=== PATIENT | female | born 1930 | race African-American/Black ===

== ENCOUNTER 2018-07-05 18:27 | Inpatient (IN) | payer MEDICARE, MEDICAID, OTHER ==
[~2018-07-05] VITALS: Ht 157.5 cm; Wt 69.9 kg
[~2018-07-05 18:27] MED LIST: LEVO50TA67 PO; LINA5TAB4 PO; NOR5T PO; OLME1TAB22 PO; OXYC40TA39 PO; PRAV10TA38 PO; SOTA80TA73 PO
[2018-07-05 19:18] LABS: CLARITY,URINE CLEAR (Clear); COLOR,URINE YELLOW (Yellow); GLUCOSE, URINE NEGATIVE (Neg); KETONES,URINE NEGATIVE (Neg); LEUKOCYTE ESTERASE ,URINE NEGATIVE (Neg); NITRITES, URINE NEGATIVE (Neg); OCCULT BLOOD,URINE NEGATIVE (Neg); PH,URINE 5.5 (4.8-8.0); PROTEIN,URINE 30 mg/dl (Neg); UROBILINOGEN,URINE 0.2 E.U/dL (0.2-1.0)
[2018-07-05 19:27] LABS: UA COLLECTION TYPE CLN CATCH MIDSTREAM
[2018-07-05 19:36] LABS: BACTERIA,URINE NONE SEEN /HPF (Neg); RBC,URINE NONE SEEN /HPF (0-2); SQUAMOUS EPITHELIAL CELL,UR FEW /LPF (FEW); WBC,URINE 0-4 /HPF (0-4)
[2018-07-05 19:37] LABS: HYALINE CASTS 0-3 /LPF (NEGATIVE); MUCUS STRANDS FEW /LPF (Neg)
[2018-07-05] MEDS ORDERED: cloNIDine 0.1 mg tablet PO ONE (20:45)
[2018-07-05 21:30] LABS: BASOPHILS % (AUTO) 0.6 % (0-1); EOSINOPHILS # (AUTO) 0.2 X10'3 (0-0.9); EOSINOPHILS % (AUTO) 2.8 % (0-6); HEMATOCRIT 34.7 % (35.0-45.0); HEMOGLOBIN 11.6 g/dl (12.0-16.0); LYMPHOCYTES # (AUTO) 1.5 X10'3 (1.1-4.8); LYMPHOCYTES % (AUTO) 24.9 % (21-51); MEAN CORPUSCULAR HEMOGLOBIN 28.7 PG (27.0-31.0); MEAN CORPUSCULAR HGB CONC 33.3 % (33.0-36.5); MEAN CORPUSCULAR VOLUME 86.1 FL (78-98); MEAN PLATELET VOLUME 8.6 FL (7.4-10.4); MONOCYTES # (AUTO) 0.5 X10'3 (0-0.9); NEUTROPHILS # (AUTO) 3.8 X10'3 (1.8-7.7); NEUTROPHILS % (AUTO) 63.7 % (42-75); PLATELET COUNT 230 X10'3 (140-440); RED BLOOD COUNT 4.03 X10'6 (4.20-5.60); RED CELL DISTRIBUTION WIDTH 14.5 % (11.5-14.5); WHITE BLOOD COUNT 5.9 X10'3 (4.5-11.0)
[2018-07-05 21:47] LABS: PARTIAL THROMBOPLASTIN TIME 26 SECONDS (22-32); PROTHROMBIN TIME 10.2 SECONDS (9.0-12.0)
[2018-07-05] MEDS ORDERED: hydrALAZINE 20mg/ml inj. IV ONE (22:05)
[2018-07-05 22:35] LABS: ALANINE AMINOTRANSFERASE 23 U/L (12-78); ALBUMIN 3.2 G/DL (3.4-5.0); ALKALINE PHOSPHATASE 68 IU/L (46-116); ANION GAP 6 (8-16); ASPARTATE AMINO TRANSFERASE 19 U/L (10-37); BILIRUBIN,TOTAL 0.4 MG/DL (0.1-1.0); BLOOD UREA NITROGEN 19 MG/DL (7-18); BUN/CREATININE RATIO 19.2 (6.6-38.0); CALCIUM 9.4 MG/DL (8.5-10.1); CHLORIDE 107 MMOL/L (99-107); CREATININE 0.99 MG/DL (0.40-0.90); GLUCOSE 132 MG/DL (70-104); POTASSIUM 3.8 MMOL/L (3.5-5.1); SODIUM 144 MMOL/L (135-145); TOTAL CARBON DIOXIDE 30.7 MMOL/L (24-32); TOTAL PROTEIN 6.4 G/DL (6.4-8.2); eGFR 64 ML/MIN
[2018-07-05 22:45] LABS: CREATINE KINASE 56 U/L (26-192); MAGNESIUM 1.7 MG/DL (1.5-2.4)
[2018-07-05] MEDS: niCARDipine/sod cl 20mg/200ml 200 ML IV SCH (23:34)
[2018-07-06] VITALS (15 sets, daily range): BP systolic 106–148; BP diastolic 47–85
[2018-07-06] MEDS: hyDRALAzine 10mg tablet PO SCH ×4 (00:19→23:13)
[2018-07-06] MEDS ORDERED: niCARDipine/sod cl 20mg/200ml 200 ML IV PRN (01:27)
[2018-07-06] MEDS ORDERED: potassium Cl 20 mEq SR tablet PO PRN ×2 (01:30)
[2018-07-06] MEDS ORDERED: morphine 4 MG/ML inj SYRINge IV PRN (01:30)
[2018-07-06] MEDS ORDERED: acetaminophen 325mg tablet PO PRN ×2 (01:30)
[2018-07-06] MEDS: K, MAG and/or Phos replacement - Verify level? MC SCH ×2 (01:30→08:00)
[2018-07-06] MEDS ORDERED: morphine 2 MG/ML inj. syringe IV PRN (01:30)
[2018-07-06] MEDS ORDERED: magnesium hydroxide 30ml (MOM) UD suspension PO PRN (01:30)
[2018-07-06] MEDS ORDERED: potassium Cl 40MEQ/NS 500ml 500 ML IV PRN ×2 (01:30)
[2018-07-06] MEDS ORDERED: ondansetron/PF 4mg/2ml inj IV PRN (01:30)
[2018-07-06] MEDS: niCARDipine/sod cl 20mg/200ml 200 ML IV SCH ×3 (05:05→10:50)
[2018-07-06] MEDS ORDERED: hydrALAZINE 20mg/ml inj. IV PRN (06:55)
[2018-07-06 06:59] LABS: BASOPHILS % (AUTO) 0.5 % (0-1); EOSINOPHILS # (AUTO) 0.2 X10'3 (0-0.9); EOSINOPHILS % (AUTO) 3.2 % (0-6); HEMATOCRIT 33.2 % (35.0-45.0); HEMOGLOBIN 11.1 g/dl (12.0-16.0); LYMPHOCYTES # (AUTO) 1.4 X10'3 (1.1-4.8); LYMPHOCYTES % (AUTO) 21.7 % (21-51); MEAN CORPUSCULAR HEMOGLOBIN 28.9 PG (27.0-31.0); MEAN CORPUSCULAR HGB CONC 33.5 % (33.0-36.5); MEAN PLATELET VOLUME 8.6 FL (7.4-10.4); MONOCYTES # (AUTO) 0.4 X10'3 (0-0.9); MONOCYTES % (AUTO) 6.9 % (2-12); NEUTROPHILS # (AUTO) 4.3 X10'3 (1.8-7.7); NEUTROPHILS % (AUTO) 67.7 % (42-75); PLATELET COUNT 241 X10'3 (140-440); RED BLOOD COUNT 3.86 X10'6 (4.20-5.60); RED CELL DISTRIBUTION WIDTH 14.3 % (11.5-14.5); WHITE BLOOD COUNT 6.4 X10'3 (4.5-11.0)
[2018-07-06 07:07] LABS: ALANINE AMINOTRANSFERASE 21 U/L (12-78); ALKALINE PHOSPHATASE 62 IU/L (46-116); ANION GAP 9 (8-16); ASPARTATE AMINO TRANSFERASE 16 U/L (10-37); BILIRUBIN,TOTAL 0.5 MG/DL (0.1-1.0); BLOOD UREA NITROGEN 18 MG/DL (7-18); BUN/CREATININE RATIO 19.8 (6.6-38.0); CALCIUM 9.1 MG/DL (8.5-10.1); CHLORIDE 108 MMOL/L (99-107); CREATININE 0.91 MG/DL (0.40-0.90); GLUCOSE 181 MG/DL (70-104); MAGNESIUM 1.4 MG/DL (1.5-2.4); PHOSPHORUS 2.8 MG/DL (2.3-4.5); POTASSIUM 3.8 MMOL/L (3.5-5.1); SODIUM 144 MMOL/L (135-145); TOTAL CARBON DIOXIDE 26.6 MMOL/L (24-32); eGFR 70 ML/MIN
[2018-07-06] MEDS: pantoprazole 40mg Tablet.DR PO SCH (07:55)
[2018-07-06] MEDS: losartan 50mg tablet PO SCH (07:55)
[2018-07-06] MEDS: linagliptin 5mg tablet PO SCH (07:55)
[2018-07-06] MEDS: HYDROchlorothiazide 12.5mg capsule PO SCH (07:55)
[2018-07-06] MEDS: sotalol 80mg tablet PO SCH ×2 (07:56→20:00)
[2018-07-06] MEDS: amLODIPine 5mg tablet PO SCH (07:56)
[2018-07-06] MEDS: pravastatin 40mg tablet PO SCH (07:56)
[2018-07-06] MEDS: enoxaparin 40mg/0.4ml syringe SUBCUT SCH (07:57)
[2018-07-06] MEDS ORDERED: pravastatin 10mg tablet PO SCH (08:00)
[2018-07-06] MEDS ORDERED: oxyCODONE SR 40mg (sust release) tab PO SCH (08:00)
[2018-07-06] MEDS ORDERED: HYDROCHLOROTHIAZIDE PO SCH (08:00)
[2018-07-06] MEDS ORDERED: OLMESARTAN PO SCH (08:00)
[2018-07-06] MEDS: oxyCODONE SR 10mg (sust. release) tab PO SCH ×2 (09:39→20:21)
[2018-07-06] MEDS: levoTHYROXINE 25mcg tablet PO SCH (20:21)
[2018-07-07 02:00] VITALS: BP 142/45
[2018-07-07 06:00] VITALS: BP 128/41
[2018-07-07 07:42] LABS: BASOPHILS % (AUTO) 0.4 % (0-1); EOSINOPHILS # (AUTO) 0.2 X10'3 (0-0.9); EOSINOPHILS % (AUTO) 3.7 % (0-6); HEMATOCRIT 33.1 % (35.0-45.0); HEMOGLOBIN 10.9 g/dl (12.0-16.0); LYMPHOCYTES # (AUTO) 1.5 X10'3 (1.1-4.8); LYMPHOCYTES % (AUTO) 24.5 % (21-51); MEAN CORPUSCULAR HEMOGLOBIN 28.3 PG (27.0-31.0); MEAN CORPUSCULAR VOLUME 85.8 FL (78-98); MEAN PLATELET VOLUME 8.7 FL (7.4-10.4); MONOCYTES # (AUTO) 0.4 X10'3 (0-0.9); MONOCYTES % (AUTO) 6.9 % (2-12); NEUTROPHILS % (AUTO) 64.5 % (42-75); PLATELET COUNT 257 X10'3 (140-440); RED BLOOD COUNT 3.85 X10'6 (4.20-5.60); RED CELL DISTRIBUTION WIDTH 14.7 % (11.5-14.5); WHITE BLOOD COUNT 6.2 X10'3 (4.5-11.0)
[2018-07-07 07:58] LABS: ALANINE AMINOTRANSFERASE 20 U/L (12-78); ALBUMIN 3.1 G/DL (3.4-5.0); ALKALINE PHOSPHATASE 62 IU/L (46-116); ANION GAP 10 (8-16); ASPARTATE AMINO TRANSFERASE 16 U/L (10-37); BILIRUBIN,TOTAL 0.6 MG/DL (0.1-1.0); BLOOD UREA NITROGEN 22 MG/DL (7-18); BUN/CREATININE RATIO 21.8 (6.6-38.0); CALCIUM 9.8 MG/DL (8.5-10.1); CHLORIDE 106 MMOL/L (99-107); CREATININE 1.01 MG/DL (0.40-0.90); GLUCOSE 139 MG/DL (70-104); MAGNESIUM 1.6 MG/DL (1.5-2.4); PHOSPHORUS 3.7 MG/DL (2.3-4.5); POTASSIUM 3.6 MMOL/L (3.5-5.1); SODIUM 143 MMOL/L (135-145); TOTAL CARBON DIOXIDE 27.2 MMOL/L (24-32); TOTAL PROTEIN 6.3 G/DL (6.4-8.2); eGFR 62 ML/MIN
[2018-07-07] MEDS: sotalol 80mg tablet PO SCH (08:00)
[2018-07-07] MEDS: K, MAG and/or Phos replacement - Verify level? MC SCH (08:00)
[2018-07-07] MEDS: amLODIPine 5mg tablet PO SCH (08:02)
[2018-07-07] MEDS: hyDRALAzine 10mg tablet PO SCH ×3 (08:02→23:33)
[2018-07-07] MEDS: linagliptin 5mg tablet PO SCH (08:02)
[2018-07-07] MEDS: enoxaparin 40mg/0.4ml syringe SUBCUT SCH (08:02)
[2018-07-07] MEDS: pantoprazole 40mg Tablet.DR PO SCH (08:02)
[2018-07-07] MEDS: losartan 50mg tablet PO SCH (08:03)
[2018-07-07] MEDS: oxyCODONE SR 10mg (sust. release) tab PO SCH ×2 (08:03→19:50)
[2018-07-07] MEDS: HYDROchlorothiazide 12.5mg capsule PO SCH (08:03)
[2018-07-07] MEDS: pravastatin 40mg tablet PO SCH (09:15)
[2018-07-07] MEDS ORDERED: sennosides 8.6mg tablet PO ONE (10:05)
[2018-07-07 11:00] VITALS: BP 107/53
[2018-07-07 15:00] VITALS: BP 112/55
[2018-07-07 19:00] VITALS: BP 148/62
[2018-07-07] MEDS: levoTHYROXINE 25mcg tablet PO SCH (19:50)
[2018-07-07 23:00] VITALS: BP 167/59
[2018-07-08 03:00] VITALS: BP 128/49
[2018-07-08 07:18] LABS: BASOPHILS % (AUTO) 0.6 % (0-1); EOSINOPHILS # (AUTO) 0.4 X10'3 (0-0.9); EOSINOPHILS % (AUTO) 6.6 % (0-6); HEMATOCRIT 34.4 % (35.0-45.0); HEMOGLOBIN 11.4 g/dl (12.0-16.0); LYMPHOCYTES # (AUTO) 1.3 X10'3 (1.1-4.8); LYMPHOCYTES % (AUTO) 22.8 % (21-51); MEAN CORPUSCULAR HEMOGLOBIN 28.7 PG (27.0-31.0); MEAN CORPUSCULAR HGB CONC 33.3 % (33.0-36.5); MEAN CORPUSCULAR VOLUME 86.3 FL (78-98); MEAN PLATELET VOLUME 8.5 FL (7.4-10.4); MONOCYTES # (AUTO) 0.5 X10'3 (0-0.9); MONOCYTES % (AUTO) 8.5 % (2-12); NEUTROPHILS # (AUTO) 3.5 X10'3 (1.8-7.7); NEUTROPHILS % (AUTO) 61.5 % (42-75); PLATELET COUNT 246 X10'3 (140-440); RED BLOOD COUNT 3.99 X10'6 (4.20-5.60); RED CELL DISTRIBUTION WIDTH 14.7 % (11.5-14.5); WHITE BLOOD COUNT 5.7 X10'3 (4.5-11.0)
[2018-07-08 07:21] VITALS: BP 126/57
[2018-07-08 07:28] LABS: ALANINE AMINOTRANSFERASE 20 U/L (12-78); ALBUMIN 3.2 G/DL (3.4-5.0); ALKALINE PHOSPHATASE 66 IU/L (46-116); ANION GAP 9 (8-16); ASPARTATE AMINO TRANSFERASE 18 U/L (10-37); BILIRUBIN,TOTAL 0.6 MG/DL (0.1-1.0); BLOOD UREA NITROGEN 23 MG/DL (7-18); BUN/CREATININE RATIO 23.7 (6.6-38.0); CALCIUM 9.5 MG/DL (8.5-10.1); CHLORIDE 105 MMOL/L (99-107); CHOL/HDL RATIO 2.9 (0.00-4.99); CHOLESTEROL 148 MG/DL (0-200); CREATININE 0.97 MG/DL (0.40-0.90); GLUCOSE 146 MG/DL (70-104); HDL CHOLESTEROL 51 MG/DL (35-60); LDL CHOLESTEROL 77 MG/DL (50-100); MAGNESIUM 1.9 MG/DL (1.5-2.4); PHOSPHORUS 3.9 MG/DL (2.3-4.5); POTASSIUM 3.9 MMOL/L (3.5-5.1); SODIUM 142 MMOL/L (135-145); TOTAL CARBON DIOXIDE 28.4 MMOL/L (24-32); TOTAL PROTEIN 6.4 G/DL (6.4-8.2); TRIGLYCERIDES 100 MG/DL (20-135); eGFR 65 ML/MIN
[2018-07-08] MEDS: K, MAG and/or Phos replacement - Verify level? MC SCH (08:00)
[2018-07-08] MEDS: oxyCODONE SR 10mg (sust. release) tab PO SCH (08:25)
[2018-07-08] MEDS: pravastatin 40mg tablet PO SCH (08:25)
[2018-07-08] MEDS: linagliptin 5mg tablet PO SCH (08:25)
[2018-07-08] MEDS: pantoprazole 40mg Tablet.DR PO SCH (08:26)
[2018-07-08] MEDS: hyDRALAzine 10mg tablet PO SCH (08:26)
[2018-07-08] MEDS: HYDROchlorothiazide 12.5mg capsule PO SCH (08:27)
[2018-07-08] MEDS: losartan 50mg tablet PO SCH (08:27)
[2018-07-08] MEDS: amLODIPine 5mg tablet PO SCH (08:28)
[2018-07-08] MEDS: enoxaparin 40mg/0.4ml syringe SUBCUT SCH (08:28)
[2018-07-08] MEDS ORDERED: ASPI81TA52 PO (10:06)
[2018-07-08] MEDS ORDERED: hyDRALAzine tablet PO (10:06)
[2018-07-08 11:49] VITALS: BP 158/67
== END 2018-07-08 12:30 | disposition home health service (06) | DRG 78 ==
LOC: ER 18:28 → ED HOLD 07-06 01:27 → CICU 2S 07-06 02:58 → PCU 3S 07-06 16:24
PROVIDERS: ATTEND Family Medicine
DX: I67.4 Hypertensive encephalopathy (principal); G45.9 Transient cerebral ischemic attack, unspecified; I16.1 Hypertensive emergency; R47.01 Aphasia; I10 Essential (primary) hypertension; F03.90 Unspecified dementia, unspecified severity, without behavioral disturbance, psychotic disturbance, mood disturbance, and anxiety; E03.9 Hypothyroidism, unspecified; E11.9 Type 2 diabetes mellitus without complications; E78.5 Hyperlipidemia, unspecified; Z60.2 Problems related to living alone; M54.9 Dorsalgia, unspecified; R00.1 Bradycardia, unspecified; R74.8 Abnormal levels of other serum enzymes; G89.29 Other chronic pain; J32.2 Chronic ethmoidal sinusitis; K80.20 Calculus of gallbladder without cholecystitis without obstruction; J32.3 Chronic sphenoidal sinusitis; Z79.82 Long term (current) use of aspirin; Z79.84 Long term (current) use of oral hypoglycemic drugs; Z85.3 Personal history of malignant neoplasm of breast; Z79.899 Other long term (current) drug therapy
CPT/HCPCS: 36415; 70450; 70551; 71045; 80053; 80061; 81001; 82140; 82550; 82948; 83735; 84100; 84443; 84484; 85025; 85610; 85730; 87070; 93005; 93306; 93880; 96374; 97116; 97162; 97530; 99291; A6213; J0360; J1650

== ENCOUNTER 2018-07-14 14:55 | Emergency (ER) | payer MEDICARE, MEDICAID ==
[~2018-07-14] VITALS: Ht 165.1 cm; Wt 70.9 kg
[~2018-07-14 14:55] MED LIST changes: +ASPI81TA52 PO; -SOTA80TA73 PO; +hyDRALAzine tablet PO
[2018-07-14 16:35] VITALS: BP 161/66
== END 2018-07-14 17:07 | disposition home or self-care (01) ==
LOC: ER 14:56
DX: S01.01XA Laceration without foreign body of scalp, initial encounter (principal); S09.90XA Unspecified injury of head, initial encounter; I10 Essential (primary) hypertension; E11.9 Type 2 diabetes mellitus without complications; G89.29 Other chronic pain; Z98.890 Other specified postprocedural states; Z85.3 Personal history of malignant neoplasm of breast; Z79.82 Long term (current) use of aspirin; Z79.899 Other long term (current) drug therapy; W01.198A Fall on same level from slipping, tripping and stumbling with subsequent striking against other object, initial encounter; Y93.89 Activity, other specified; Y92.89 Other specified places as the place of occurrence of the external cause; Y99.9 Unspecified external cause status
CPT/HCPCS: 70450; 99284

== ENCOUNTER 2018-09-17 12:28 | Emergency (ER) | payer MEDICARE, MEDICAID ==
[~2018-09-17] VITALS: Ht 157.5 cm; Wt 64.0 kg
[2018-09-17 12:59] VITALS: BP 184/92
[2018-09-17] MEDS ORDERED: ketorolac tromethamine 15mg/ml inj. IM ONE (14:55)
[2018-09-17] MEDS ORDERED: ORPH100T2 PO (15:12)
== END 2018-09-17 16:11 | disposition home or self-care (01) ==
LOC: ER 12:30
DX: S16.1XXA Strain of muscle, fascia and tendon at neck level, initial encounter (principal); R07.81 Pleurodynia; M54.9 Dorsalgia, unspecified; I10 Essential (primary) hypertension; E11.9 Type 2 diabetes mellitus without complications; G89.29 Other chronic pain; Z98.890 Other specified postprocedural states; Z79.82 Long term (current) use of aspirin; Z79.899 Other long term (current) drug therapy; V49.49XA Driver injured in collision with other motor vehicles in traffic accident, initial encounter; Y93.89 Activity, other specified; Y92.488 Other paved roadways as the place of occurrence of the external cause; Y99.8 Other external cause status
CPT/HCPCS: 70450; 72125; 96372; 99284; J1885

== ENCOUNTER 2018-12-21 15:52 | Emergency (ER) | payer MEDICARE, MEDICAID ==
[~2018-12-21] VITALS: Ht 157.5 cm; Wt 70.5 kg
[~2018-12-21 15:52] MED LIST changes: +ORPH100T2 PO
[2018-12-21 17:26] VITALS: BP 205/90
== END 2018-12-21 17:28 | disposition home or self-care (01) ==
LOC: ER 15:52
DX: E11.65 Type 2 diabetes mellitus with hyperglycemia (principal); I10 Essential (primary) hypertension; G89.29 Other chronic pain; M54.9 Dorsalgia, unspecified; Z79.82 Long term (current) use of aspirin; Z85.3 Personal history of malignant neoplasm of breast; Z79.899 Other long term (current) drug therapy
CPT/HCPCS: 82948; 99281; 99282